=== PATIENT | male | born 1980 | race Hispanic/Latino ===

== ENCOUNTER 2019-09-21 12:09 | Emergency (ER) | payer SELFPAY ==
[2019-09-21 13:00] LABS: #Eosinphils 0.1 thou/uL (0.0-0.7); #Lymphocytes 1.5 thou/uL (1.20-3.40); #Monocytes 0.4 thou/uL (0.11-0.59); #Neutrophils 3.3 thou/uL (1.40-6.50); %Basophils 0.4 % (0.0-1.0); %Eosinophils 1.6 % (0.0-10.0); %Lymphocytes 28.7 % (21.0-51.0); %Monocytes 6.9 % (0.0-10.0); %Neutrophils 62.4 % (42.0-75.0); Hemoglobin 17.2 g/dL (14.0-18.0); Mean Corpuscular HGB CONC 35.2 g/dL (32.0-36.0); Mean Corpuscular Volume 87.8 fL (78.0-98.0); Mean Platelet Volume 9.9 fL (7.4-10.4); Platelet Count 169 thou/uL (130-400); RBC Distribution Width 12.1 % (11.5-14.5); Red Blood Cell (RBC) Count 5.56 mill/uL (4.70-6.10); White Blood Cell (WBC) Count 5.3 thou/uL (4.8-10.8)
[2019-09-21 13:28] LABS: ALT (SGPT) 30 U/L (8-55); AST (SGOT) 17 U/L (5-34); Albumin 4.3 g/dL (3.5-5.0); Alkaline Phosphatase 136 U/L (40-110); Anion Gap 16 mmol/L (10-20); BUN (Urea Nitrogen) 18 mg/dL (8.9-20.6); Bilirubin, Total 1.3 mg/dL (0.2-1.2); Calc. Creatinine Clearance 0 mL/min (70-130); Calcium 9.5 mg/dL (7.8-10.44); Carbon Dioxide 21 mmol/L (22-29); Chloride 102 mmol/L (98-107); Estimated GFR-MDRD 59; Glucose 192 mg/dL (70-105); Lipase 34 U/L (8-78); Potassium 3.1 mmol/L (3.5-5.1); Protein, Total 7.3 g/dL (6.0-8.3); Sodium 136 mmol/L (136-145)
[2019-09-21] MEDS ORDERED: Ketorolac Tromethamine 30 MG/ML VIAL ONE (18:57)
--- NOTE | 2019-09-21 20:04 | CT ---
CT Stone Protocol: 09/21/2019 6:44 PM HISTORY: Worsening abdominal pain that began yesterday COMPARISON: None. TECHNIQUE: Multiple contiguous axial images were obtained and a CT of the abdomen and pelvis without IV contrast . Oral contrast was administered. Coronal and sagittal reformats were performed. FINDINGS: This examination is limited for the evaluation of solid organs and vascular structures due to the lac k of intravenous contrast. Lower Chest: within normal limits. Abdomen: Liver: Diffuse fatty infiltration of the liver. Bile Ducts: Normal caliber. Gallbladder: No calcified gallstones. Normal caliber wall. Pancreas: within normal limits. Spleen: within normal limits. Adrenals: within normal limits. Kidneys: Mild to moderate right hydronephrosis. No left hydronephrosis. Pelvis: Reproductive Organs: No pelvic masses. Ureters: There is a 7-8 mm calcification in the mid right ureter with mild dilatation of the proximal right ureter. Bladder: within normal limits. Bowel: Normal caliber. Normal appendix. Scattered diverticula in the colon. Mesenteric Lymph Nodes: No enlarged mesenteric lymph nodes. Peritoneum: No ascites or free air, no fluid collection. Vessels: Normal caliber aorta Retroperitoneum: within normal limits. Abdominal Wall: within normal limits. Bones: Unremarkable. IMPRESSION: 1. Right mid ureteral calcification with mild to moderate right hydronephrosis. 2. Fatty liver
[2019-09-21 20:47] LABS: Bilirubin Negative (Negative); Blood, Urine Negative (Negative); Clarity Clear (Clear); Glucose, Urine (Dipstick) Greater than 1000 mg/dL (Negative); Leukocyte Negative Leu/uL (Negative); Nitrite Negative (Negative); Protein, Urine (Dipstick) Negative (Neg-Trace); Urobilinogen Normal mg/dL (Less than 2)
== END 2019-09-21 22:05 | disposition home or self-care (01) ==
LOC: ERS 12:09
DX: N13.2 Hydronephrosis with renal and ureteral calculous obstruction (principal)
CPT/HCPCS: 36415; 74176; 80053; 81003; 83690; 85025; 96361; 96374; J1885